=== PATIENT | female | born 1990 ===

== ENCOUNTER 2018-10-22 13:57 | Outpatient (CLI) | payer SELFPAY | END 2018-10-22 13:58 | disposition home or self-care (01) | LOC: C.USIC 13:57 | DX: Z01.419 Encounter for gynecological examination (general) (routine) without abnormal findings (principal); N92.6 Irregular menstruation, unspecified; N88.8 Other specified noninflammatory disorders of cervix uteri; Z97.5 Presence of (intrauterine) contraceptive device ==